=== PATIENT | male | born 1960 | race Caucasian/White ===

== ENCOUNTER 2019-08-08 07:00 | Outpatient (CLI) | payer OTHER ==
[2019-08-08 14:38] LABS: Hemoglobin 15.1 g/dL (14.0-18.0); Mean Corpuscular HGB CONC 34.1 g/dL (32.0-36.0); Mean Corpuscular Hemoglobin 33.5 pg (27.0-31.0); Mean Corpuscular Volume 98.3 fL (78.0-98.0); Mean Platelet Volume 7.1 fL (7.4-10.4); Platelet Count 277 thou/uL (130-400); RBC Distribution Width 11.5 % (11.5-14.5); Red Blood Cell (RBC) Count 4.52 mill/uL (4.70-6.10); White Blood Cell (WBC) Count 10.8 thou/uL (4.8-10.8)
[2019-08-08 14:58] LABS: Anion Gap 13 mmol/L (10-20); BUN (Urea Nitrogen) 16 mg/dL (8.4-25.7); Calc. Creatinine Clearance 0 mL/min (70-130); Calcium 9.7 mg/dL (7.8-10.44); Carbon Dioxide 27 mmol/L (22-29); Chloride 100 mmol/L (98-107); Estimated GFR-MDRD 81; Glucose 102 mg/dL (70-105); Potassium 4.1 mmol/L (3.5-5.1); Sodium 136 mmol/L (136-145)
--- NOTE | 2019-08-12 16:12 | EKG ---
Test Reason : Blood Pressure : / mmHG Vent. Rate : 094 BPM Atrial Rate : 094 BPM P-R Int : 154 ms QRS Dur : 114 ms QT Int : 368 ms P-R-T Axes : 058 -39 016 degrees QTc Int : 460 ms Normal sinus rhythm Left axis deviation Moderate voltage criteria for LVH, may be normal variant Abnormal ECG No previous ECGs available Confirmed by DR. Radha HALE ([id number]) on 08/12/2019 4:12:17 PM Referred By: TAYLA Confirmed By:DR. Radha HALE
== END 2019-08-08 07:01 | disposition home or self-care (01) ==
LOC: LABBT 07:00
PROVIDERS: ATTEND Orthopaedic Surgery
DX: Z01.818 Encounter for other preprocedural examination (principal); G56.01 Carpal tunnel syndrome, right upper limb
CPT/HCPCS: 80048; 85027; 93005; 93010

== ENCOUNTER 2019-08-09 10:06 | Day surgery (SDC) | payer OTHER ==
[2019-08-08 13:14] VITALS: BMI 27.2
[2019-08-09] MEDS ORDERED: Bupivacaine HCl 0.5%/Epinephrine 1:200,000/PF 30 ml Vial ONE (13:08)
[2019-08-09] MEDS ORDERED: Neomycin-Polymyxin 1 ML AMP ONE (13:08)
[2019-08-09] MEDS ORDERED: Midazolam HCl 2 mg/2 ml Vial ONE (13:19)
[2019-08-09] MEDS ORDERED: Fentanyl 100 MCG/2 ML VIAL ONE (13:33)
[2019-08-09] MEDS ORDERED: PROPOFOL 200 MG/20 ML VIAL ONE (13:40)
[2019-08-09] MEDS ORDERED: Ondansetron PF 4 MG/2 ML Vial ONE (13:40)
[2019-08-09] MEDS ORDERED: Lidocaine 1% PF 5 ML VIAL ONE (13:40)
[2019-08-09] MEDS ORDERED: Ketorolac Tromethamine 30 MG/ML VIAL ONE (13:40)
[2019-08-09] MEDS ORDERED: HYDROcodone/Acetaminophen 7.5/325 mg Tablet ONE (14:56)
--- NOTE | 2019-08-09 16:19 | OP ---
DATE OF PROCEDURE: 08/09/2019 PREOPERATIVE DIAGNOSIS: Right carpal tunnel syndrome. POSTOPERATIVE DIAGNOSIS: Right carpal tunnel syndrome. PROCEDURE PERFORMED: Right carpal tunnel release. ANESTHESIA: General. DESCRIPTION OF PROCEDURE: The patient was given preoperative IV antibiotics, taken to the operating room, placed in supine position. Satisfactory general anesthesia was performed. The right hand, wrist, and distal forearm were sterilely prepped and draped, and after exsanguination, tourniquet in the proximal right forearm was raised to 220 mmHg. A curvilinear incision was made approximately 1.5 cm in length at the palm of the hand over the carpal tunnel and blunt dissection was made down through the palmar fascia and the median nerve was identified using the [employer] Carpal [employer]unnel [employer] instrumentation. The interval between the median nerve and the transverse carpal ligament was developed and then the [place] was used to cut the transverse carpal ligament and any other soft tissue that was constructed in the median nerve. After this was performed, I was able to visually see the median nerve into the palm of the hand into the wrist. The wound was then irrigated and closed using 3-0 Rapide. The wound was infiltrated with 10 mL of 0.5% Marcaine with epinephrine. Sterile dressing was applied. Tourniquet was released. The patient was awakened, extubated, and transferred to recovery room in stable condition. ESTIMATED BLOOD LOSS: None. COMPLICATIONS: None. TOURNIQUET TIME: 7 minutes. DISCHARGE MEDICATION: Tramadol 50 mg one every 4-6 hours as needed for pain, #40, with one refill. FOLLOWUP: Follow up in my office in 1 week. Job ID: [id number]
== END 2019-08-09 17:10 | disposition home or self-care (01) ==
LOC: SDC 10:06
PROVIDERS: ATTEND Orthopaedic Surgery
PROC: 01N50ZZ Release Median Nerve, Open Approach (ICD-10-PCS; principal; 2019-08-09)
DX: G56.01 Carpal tunnel syndrome, right upper limb (principal); I10 Essential (primary) hypertension; F32.9 Major depressive disorder, single episode, unspecified; Z79.899 Other long term (current) drug therapy; Z98.890 Other specified postprocedural states
CPT/HCPCS: J0670; J0690; J1885; J2001; J2250; J2405; J2704; J3010

== ENCOUNTER 2020-11-24 11:02 | Inpatient (IN) | payer OTHER, SELFPAY ==
[2020-11-24 11:49] LABS: #Eosinphils 0.2 thou/uL (0.0-0.7); #Lymphocytes 2.8 thou/uL (1.20-3.40); #Monocytes 0.7 thou/uL (0.11-0.59); #Neutrophils 6.2 thou/uL (1.40-6.50); %Basophils 0.2 % (0.0-1.0); %Eosinophils 1.7 % (0.0-10.0); %Lymphocytes 28.7 % (21.0-51.0); %Monocytes 7.1 % (0.0-10.0); %Neutrophils 62.4 % (42.0-75.0); Hemoglobin 13.4 g/dL (14.0-18.0); Mean Corpuscular HGB CONC 32.6 g/dL (32.0-36.0); Mean Corpuscular Hemoglobin 32.5 pg (27.0-31.0); Mean Corpuscular Volume 99.7 fL (78.0-98.0); Mean Platelet Volume 7.4 fL (7.4-10.4); Platelet Count 232 thou/uL (130-400); RBC Distribution Width 12.5 % (11.5-14.5); Red Blood Cell (RBC) Count 4.11 mill/uL (4.70-6.10); White Blood Cell (WBC) Count 9.9 thou/uL (4.8-10.8)
--- NOTE | 2020-11-24 12:00 | RAD ---
Exam: Chest one view HISTORY:Dyspnea. Comparison: None FINDINGS: Cardiac silhouette: Normal Aorta: Unremarkable Pulmonary vessels: Normal Costophrenic angles: Clear LUNGS: No masses or consolidation. Pneumothorax: None Osseous abnormalities: None IMPRESSION: No acute cardiopulmonary process.
[2020-11-24 12:13] LABS: ALT (SGPT) 42 U/L (8-55); AST (SGOT) 32 U/L (5-34); Albumin 3.9 g/dL (3.5-5.0); Alkaline Phosphatase 71 U/L (40-110); Anion Gap 14 mmol/L (10-20); BUN (Urea Nitrogen) 22 mg/dL (8.4-25.7); Bilirubin, Total 0.5 mg/dL (0.2-1.2); CK (CPK) 60 U/L (30-200); Calc. Creatinine Clearance 0 mL/min (70-130); Calcium 8.7 mg/dL (7.8-10.44); Carbon Dioxide 26 mmol/L (22-29); Chloride 103 mmol/L (98-107); Globulin 2.7 g/dL (2.4-3.5); Glucose 112 mg/dL (70-105); Lipase 8 U/L (8-78); Potassium 3.9 mmol/L (3.5-5.1); Protein, Total 6.6 g/dL (6.0-8.3); Sodium 139 mmol/L (136-145)
--- NOTE | 2020-11-24 13:35 | CT ---
CT ANGIOGRAM THORAX WITH IV CONTRAST AND 3-D RECONSTRUCTIONS CLINICAL INDICATION: Worsening shortness of breath. COMPARISON: None FINDINGS: Pulmonary arteries: No filling defects are seen in the pulmonary arteries to suggest a pulmonary embo law. Aorta: Not well opacified for adequate evaluation of aortic dissection, but the thoracic aorta is nor mal in caliber. Minimal vascular calcifications are seen. Lungs: Small to moderate right and small left pleural effusion are present. There is passive atelecta sis bilaterally. Scattered areas of groundglass opacity are seen in the left suprahilar region, and in the right upper , middle, and lower lobes. Mediastinum: Nonspecific mildly prominent mediastinal lymph nodes. Heart is at the upper limits of no rmal in size. Thyroid gland: Grossly normal nonenhanced CT appearance allowing for artifact. Osseous structures: No suspicious lytic or sclerotic osseous lesion. Chest wall: No abnormality visualized. Upper abdomen: Mild reflux of contrast into hepatic veins. Remainder of the visualized upper abdomen has a normal CT appearance. IMPRESSION: 1. Scattered groundglass densities within the lungs bilaterally which could be related to infectious or inflammatory process. 2. No CT evidence for pulmonary embolus. 3. Bilateral pleural effusions larger in size on the right.
[2020-11-24] MEDS ORDERED: Nitroglycerin 2% Ointment 1 INCH/1 GM Packet ONE (14:04)
[2020-11-24] MEDS ORDERED: Clopidogrel Bisulfate 75 MG TAB ONE (14:04)
[2020-11-24] MEDS ORDERED: Furosemide 40 MG/4 ML VIAL ONE (14:04)
[2020-11-24] MEDS ORDERED: Iopamidol-370 76% 500 ML 1 ML ONE (15:01)
[2020-11-24 15:26] LABS: Troponin I 0.046 ng/mL (< 0.028)
[2020-11-24 15:44] LABS: SARS-CoV-2 NAA Rapid Test Not Detected (NotDetected)
[2020-11-24 18:09] LABS: Troponin I 0.037 ng/mL (< 0.028)
[2020-11-24] MEDS ORDERED: Acetaminophen 325 MG TAB PO PRN (18:59)
[2020-11-24] MEDS ORDERED: cloNIDine 0.1 MG TAB PO PRN (19:16)
--- NOTE | 2020-11-24 19:17 | PDOC.HHP ---
Hospitalist [facility] Shortness of breath History of Present Illness: 60-year-old male with hypertension presents to the hospital with worsening shortness of breath of 1 month duration. The shortness of breath is present on [id number] exertion. Last weekend patient woke up approximately 10 times in the middle of the night gasping for air. He also noticed some bilateral lower extremity swelling. The shortness of breath gets worse on lying down flat. He denies any relieving factor. Patient complains of mild cough which was essentially dry. No wheezing, hemoptysis chest pain, palpitations, lightheadedness, dizziness, syncope, claudication, sick contacts or fever reported. In the emergency room his initial vital signs showed temperature 97.9 with pulse rate of 110, respiration of 24 with blood pressure of 133/100. His chest x-ray was consistent with volume overload. Due to elevated D-dimer he underwent a CT angiogram of the chest that showed bilateral pleural effusion larger on the right with scattered groundglass densities within the lungs bilaterally. His EKG showed sinus tachycardia with left axis deviation. His Covid testing came back negative. He received 1 dose of Plavix with Nitropatch and Lasix in the emergency room. Allergies/Adverse Reactions: Allergy/AdvReac Type Severity Reaction Status Date / Time No Known Allergies Allergy Unverified 08/08/19 13:11 Home Medications: Medication Instructions Recorded Confirmed Type Lisinopril 20 mg PO QAM 08/08/19 08/08/19 History Nortriptyline HCl 75 mg PO HS 08/08/19 08/08/19 History Past History: PAST MEDICAL HISTORY: Hypertension, anxiety PAST SURGICAL HISTORY: Bilateral carpal tunnel release, bilateral knee surgery SOCIAL HISTORY: Patient is a recovering alcoholiclast drink was approximately 8 months ago. He is also former smoker. Lives at home with his family. Denies any drug use FAMILY HISTORY: Denies any premature coronary artery disease in his family Hospitalist HPI ROS Constitutional: denies: fever, chills, sweats, weakness, malaise, other Gastrointestinal: denies: nausea, vomiting, abdominal pain, diarrhea, constipation, melena, hematochezia, other Genitourinary: denies: dysuria, frequency, incontinence, hematuria, retention, other All other systems reviewed; all pertinent +/- noted in HPI/Subj Hospitalist Exam General Appearance: awake alert General - other findings: Minimal respiratory distress at rest Eye: PERRL, anicteric sclera ENT: normocephalic atraumatic, no oropharyngeal lesions Neck: supple, no carotid bruit, JVD Heart: RRR, no gallops, no rubs, normal peripheral pulses Respiratory: no wheezes, rhonchi, tachypneic Respiratory - other findings: Bibasilar rales, accessory muscle use Gastrointestinal: soft, normal bowel sounds, no guarding, no rigidity Extremities: no cyanosis, no clubbing, 2+ LE edema Skin: normal turgor, no lesions Neurological: no new deficit Musculoskeletal: normal tone, normal strength Psychiatric: normal affect, A&O x 3 Hospitalist Results Result Diagrams: 11/24/20 11:38 11/24/20 11:38 Lab results: Laboratory Last Values WBC 9.9 thou/uL (4.8-10.8) 11/24/20 11:38 RBC 4.11 mill/uL (4.70-6.10) L 11/24/20 11:38 Hgb 13.4 g/dL (14.0-18.0) L 11/24/20 11:38 Hct 41.0 % (42.0-52.0) L 11/24/20 11:38 MCV 99.7 fL (78.0-98.0) H 11/24/20 11:38 MCH 32.5 pg (27.0-31.0) H 11/24/20 11:38 MCHC 32.6 g/dL (32.0-36.0) 11/24/20 11:38 RDW 12.5 % (11.5-14.5) 11/24/20 11:38 Plt Count 232 thou/uL (130-400) 11/24/20 11:38 MPV 7.4 fL (7.4-10.4) 11/24/20 11:38 Neutrophils % 62.4 % (42.0-75.0) 11/24/20 11:38 Lymphocytes % 28.7 % (21.0-51.0) 11/24/20 11:38 Monocytes % 7.1 % (0.0-10.0) 11/24/20 11:38 Eosinophils % 1.7 % (0.0-10.0) 11/24/20 11:38 Basophils % 0.2 % (0.0-1.0) 11/24/20 11:38 Neutrophils # 6.2 thou/uL (1.40-6.50) 11/24/20 11:38 Lymphocytes # 2.8 thou/uL (1.20-3.40) 11/24/20 11:38 Monocytes # 0.7 thou/uL (0.11-0.59) H 11/24/20 11:38 Eosinophils # 0.2 thou/uL (0.0-0.7) 11/24/20 11:38 Basophils # 0.0 thou/uL (0.0-0.2) 11/24/20 11:38 D-Dimer 0.59 *mcg/mL (0.27-0.43) H 11/24/20 11:38 Sodium 139 mmol/L (136-145) 11/24/20 11:38 Potassium 3.9 mmol/L (3.5-5.1) 11/24/20 11:38 Chloride 103 mmol/L (98-107) 11/24/20 11:38 Carbon Dioxide 26 mmol/L (22-29) 11/24/20 11:38 Anion Gap 14 mmol/L (10-20) 11/24/20 11:38 BUN 22 mg/dL (8.4-25.7) 11/24/20 11:38 Creatinine 1.01 mg/dL (0.7-1.3) 11/24/20 11:38 Estimated GFR (MDRD) 76 11/24/20 11:38 Glucose 112 mg/dL (70-105) H 11/24/20 11:38 Calcium 8.7 mg/dL (7.8-10.44) 11/24/20 11:38 Magnesium 2.0 mg/dL (1.6-2.6) 11/24/20 11:38 Total Bilirubin 0.5 mg/dL (0.2-1.2) 11/24/20 11:38 AST 32 U/L (5-34) 11/24/20 11:38 ALT 42 U/L (8-55) 11/24/20 11:38 Alkaline Phosphatase 71 U/L (40-110) 11/24/20 11:38 Creatine Kinase 60 U/L (30-200) 11/24/20 11:38 CK-MB (CK-2) 2.0 ng/mL (0-6.6) 11/24/20 11:38 Troponin I 0.037 ng/mL (< 0.028) H 11/24/20 17:34 B-Natriuretic Peptide 1744.7 pg/mL (0-100) H 11/24/20 11:38 Serum Total Protein 6.6 g/dL (6.0-8.3) 11/24/20 11:38 Albumin 3.9 g/dL (3.5-5.0) 11/24/20 11:38 Globulin 2.7 g/dL (2.4-3.5) 11/24/20 11:38 Albumin/Globulin Ratio 1.4 g/dL (1.2-2.2) 11/24/20 11:38 Lipase 8 U/L (8-78) 11/24/20 11:38 Influenza A RNA INAAT Not Detected (NotDetected) 11/24/20 14:35 Influenza B RNA INAAT Not Detected (NotDetected) 11/24/20 14:35 SARS-CoV-2 Rap RNA(RT-PCR) Not Detected (NotDetected) 11/24/20 14:35 Other Status: image reviewed by me Additional Comments: I reviewed the chest x-ray, EKG and CT angiogram of the chest Hospitalist H&P A/P Plan: 60-year-old male with hypertension presenting with worsening shortness of breath along with orthopnea and paroxysmal nocturnal dyspnea. Suspected acute heart failure exacerbationsuspected systolic type. Patient also has bilateral pleural effusion Infectious etiology less likely since patient does not have any left shift. Covid testing negative Plan: Patient will be monitored on the telemetry unit. He received 1 dose of Lasix 40 mg in the emergency room which will be continued. Add Nitropatch with aspirin. Continue lisinopril at home dose. Hold beta-blockers for now due to acute CHF exacerbation. Add fluid restriction. Cardiology consultation. Echocardiogram. N.p.o. past midnight. Hypertensionuncontrolled Continue lisinopril with Nitropatch. Add as needed antihypertensives Anxiety Patient denies any suicidal ideation. Will resume home medications once verified Macrocytic anemia We will add vitamin B12 and folic acid supplementation
[2020-11-24] MEDS: Enoxaparin Sodium 40 MG/0.4 ML SYRINGE SC SCH (20:57)
[2020-11-24] MEDS: Thiamine 100 MG TAB PO SCH (20:59)
[2020-11-24] MEDS: Folic Acid 1 MG TAB PO SCH (20:59)
[2020-11-24] MEDS: Cyanocobalamin (Vitamin B-12) 1,000 MCG TAB PO SCH (20:59)
[2020-11-24] MEDS: Multivit, Therapeutic 1 TAB PO SCH (20:59)
[2020-11-24] MEDS: Nitroglycerin 2% Ointment 1 INCH/1 GM Packet TOP SCH (20:59)
[2020-11-25 05:15] LABS: #Basophils 0.1 thou/uL (0.0-0.2); #Eosinphils 0.3 thou/uL (0.0-0.7); #Lymphocytes 2.8 thou/uL (1.20-3.40); #Monocytes 0.8 thou/uL (0.11-0.59); #Neutrophils 6.4 thou/uL (1.40-6.50); %Eosinophils 3.3 % (0.0-10.0); %Monocytes 7.9 % (0.0-10.0); %Neutrophils 60.8 % (42.0-75.0); Hemoglobin 13.7 g/dL (14.0-18.0); Mean Corpuscular HGB CONC 33.4 g/dL (32.0-36.0); Mean Corpuscular Hemoglobin 33.2 pg (27.0-31.0); Mean Corpuscular Volume 99.2 fL (78.0-98.0); Mean Platelet Volume 7.8 fL (7.4-10.4); Platelet Count 222 thou/uL (130-400); RBC Distribution Width 12.6 % (11.5-14.5); Red Blood Cell (RBC) Count 4.14 mill/uL (4.70-6.10); White Blood Cell (WBC) Count 10.4 thou/uL (4.8-10.8)
[2020-11-25 05:24] LABS: ALT (SGPT) 44 U/L (8-55); AST (SGOT) 35 U/L (5-34); Albumin 3.7 g/dL (3.5-5.0); Alkaline Phosphatase 70 U/L (40-110); Anion Gap 16 mmol/L (10-20); BUN (Urea Nitrogen) 17 mg/dL (8.4-25.7); Bilirubin, Total 0.6 mg/dL (0.2-1.2); Calc. Creatinine Clearance 93 mL/min (70-130); Calcium 8.7 mg/dL (7.8-10.44); Carbon Dioxide 26 mmol/L (22-29); Chloride 101 mmol/L (98-107); Globulin 2.5 g/dL (2.4-3.5); Glucose 104 mg/dL (70-105); Potassium 3.9 mmol/L (3.5-5.1); Protein, Total 6.2 g/dL (6.0-8.3); Sodium 139 mmol/L (136-145)
[2020-11-25] MEDS: Nitroglycerin 2% Ointment 1 INCH/1 GM Packet TOP SCH (05:34)
[2020-11-25] MEDS: Furosemide 40 MG/4 ML VIAL SLOW IVP SCH ×2 (05:34→16:31)
[2020-11-25] MEDS ORDERED: Potassium Chloride 20 MEQ TAB PO SCH (07:30)
[2020-11-25] MEDS: Lisinopril 20 MG TAB PO SCH (08:03)
[2020-11-25 08:56] VITALS: BMI 26.0
--- NOTE | 2020-11-25 09:16 | CON ---
DATE OF CONSULTATION: REASON FOR CONSULTATION: Cardiomyopathy. HISTORY OF PRESENT ILLNESS: Mr. Campbell is a 60-year-old gentleman with no previous past medical history except for alcohol abuse, who recently presented with acute onset shortness of breath. He states he felt like he was smothered. He woke at 2:30 in the morning with a smothering like feeling. No chest pain or pressure noted. He does admit to drinking at least a 6-pack of beer per day. No chest pain, pressure, syncope, or presyncope noted. PAST MEDICAL HISTORY: Hypertension, anxiety disorder, carpal tunnel release, and knee surgery. SOCIAL HISTORY: Previous recovered alcoholic, but has resumed. HOME MEDICATIONS: 1. Omeprazole. 2. Lisinopril. 3. Meloxicam. 4. Nortriptyline. ALLERGIES: TO IBUPROFEN. REVIEW OF SYSTEMS: A 10-point review of systems is reviewed and is as above, otherwise negative. PHYSICAL EXAMINATION: GENERAL: Patient is a pleasant male who is in no acute distress. The patient appears their stated age. VITAL SIGNS: Blood pressure 129/88, pulse 100, temperature afebrile. NEUROLOGIC: The patient is alert and oriented x3 with no focal neurologic deficits. HEENT: Sclerae without icterus. Mouth has moist mucous membranes with normal pallor. NECK: No JVD. Carotid upstroke brisk. No bruits bilaterally. LUNGS: Clear to auscultation with unlabored respirations. Crackle noted bilaterally BACK: No scoliosis or kyphosis. CARDIAC: Regular rate and rhythm with normal S1 and S2. No S3 or S4 noted. No significant rubs, murmurs, thrills, or gallops noted throughout the precordium. PMI is not displaced. There is no parasternal heave. ABDOMEN: Soft, nontender, nondistended. No peritoneal signs present. No hepatosplenomegaly. No abnormal striae. EXTREMITIES: 2+ femoral and 2+ dorsalis pedis pulses. No cyanosis, clubbing, or edema. SKIN: No gross abnormalities. PERTINENT LABORATORY DATA: Hemoglobin 13.7 and hematocrit 41.1. Creatinine 1.03. Peak troponin 0.046 and BNP of 1744. IMPRESSION: 1. Cardiomyopathy of unknown etiology. 2. Shortness of breath. 3. Alcohol abuse. RECOMMENDATIONS: Mr. Campbell based on his physical examination findings and lab tests likely has a new onset cardiomyopathy. This is likely related to alcohol abuse. We will recommend reviewing his echo. If it confirms above, we will recommend coronary angiography plus PCI to assess for any coronary artery disease. I discussed procedure in full detail with Mr. Campbell. Risks include not limited to the following: , stroke, MA, need for emergency surgery, loss of limb, bleeding, and infection, as well as a reaction to the dye causing kidney failure and needing long-term dialysis. I also discussed the risks of PCI to include all of the above including coronary dissection and perforation in addition to acute stent thrombosis and restenosis. All questions about the procedure were answered. Given the above, the patient agreed to proceed with coronary angiography and possible PCI. He gave consent. All questions answered. Given the above, the patient agreed to proceed with above procedure. We would recommend adding Coreg 3.125 one p.o. b.i.d. Continue lisinopril at the current dose. The patient may also benefit from digoxin. We will discontinue Nitro-Bid. Job ID: [id number]
[2020-11-25] MEDS ORDERED: Iopamidol 370 76% 100 ML VIAL ONE (09:27)
[2020-11-25 10:30] LABS: Iron 60 ug/dL (65-175); Iron Binding Capacity, Total 301 mcg/dL (261-462)
[2020-11-25] MEDS ORDERED: Lidocaine 1% (PF) 30 ML VIAL ONE (13:00)
[2020-11-25] MEDS ORDERED: Nitroglycerin 100MG/250ML BOT 250 ML ONE (13:26)
[2020-11-25] MEDS ORDERED: Verapamil 5 MG/2 ML VIAL ONE (13:26)
[2020-11-25] MEDS ORDERED: Heparin 10,000 UNITS/ 10 ML VIAL ONE (13:26)
[2020-11-25] MEDS ORDERED: Fentanyl 100 MCG/2 ML VIAL ONE (13:36)
[2020-11-25] MEDS ORDERED: Midazolam HCl 2 mg/2 ml Vial ONE (13:36)
[2020-11-25] MEDS ORDERED: Acetaminophen/Codeine 30-300mg Tablet PO PRN ×2 (13:56)
[2020-11-25] MEDS ORDERED: Nitroglycerin 0.4 MG TAB (25 Tab Bottle) SL PRN (13:56)
[2020-11-25] MEDS ORDERED: Sodium Chloride 0.9% 200 ML IV PRN (13:56)
[2020-11-25] MEDS ORDERED: Sodium Chloride 0.9% 1,000 ML IV SCH (14:00)
[2020-11-25] MEDS: Aspirin Chewable 81 MG TAB PO SCH (16:31)
[2020-11-25] MEDS: Carvedilol 6.25 MG TAB PO SCH ×2 (16:59→21:50)
--- NOTE | 2020-11-25 17:35 | PDOC.HOSPP ---
- Subjective Encounter Date: 11/25/20 Encounter Time: 09:00 Subjective: Patient seen and examined for congestive heart failure exacerbation. Shortness of breath improving. Denies any chest pain, cough, wheezing, hemoptysis or palpitations. - Objective Vital Signs & Weight: Vital Signs (12 hours) Temp Pulse Resp BP BP Pulse Ox 11/25/20 16:59 128/94 H 11/25/20 14:30 98 20 128/94 H 128/94 H 97 11/25/20 14:15 102 H 20 131/93 H 131/93 H 96 11/25/20 12:24 126/87 11/25/20 12:23 98.0 F 98 20 127/96 H 95 11/25/20 08:00 97.7 F 98 18 132/89 100 Weight Admit Weight 184 lb Weight 184 lb I&O: 11/24/20 11/25/20 11/26/20 06:59 06:59 06:59 Intake Total 240 Output Total 1000 Balance -760 Result Diagrams: 11/25/20 04:13 11/25/20 04:13 Additional Labs: Abnormal Lab Results - Last 48 hrs 11/24/20 11:38: B-Natriuretic Peptide 1744.7 H 11/24/20 11:38: RBC 4.11 L, Hgb 13.4 L, Hct 41.0 L, MCV 99.7 H, MCH 32.5 H, Monocytes # 0.7 H 11/24/20 11:38: D-Dimer 0.59 H 11/24/20 11:38: Troponin I 0.040 H 11/24/20 14:49: Troponin I 0.046 H 11/24/20 17:34: Troponin I 0.037 H 11/25/20 04:13: AST 35 H 11/25/20 04:13: RBC 4.14 L, Hgb 13.7 L, Hct 41.1 L, MCV 99.2 H, MCH 33.2 H, Monocytes # 0.8 H 11/25/20 04:13: Iron 60 L Radiology Reviewed by me: Yes (Chest x-ray reviewed) EKG Reviewed by me: Yes (Sinus rhythm on telemetry) Hospitalist ROS - Review of Systems Respiratory: reports: shortness of breath, SOB with excertion. denies: cough, dry, hemoptysis, pleuritic pain, sputum, wheezing, other Cardiovascular: reports: orthopnea, edema. denies: chest pain, palpitations, paroxysmal noc. dyspnea, light headedness, other Gastrointestinal: denies: nausea, vomiting, abdominal pain, diarrhea, co nstipation, melena, hematochezia, other - Medication Medications: Active Medications Generic Name Dose Route Start Last Admin Trade Name Jagq PRN Reason Stop Dose Admin Aspirin 81 mg 11/25/20 09:00 11/25/20 16:31 Aspirin Chewable 81 Mg Tab PO 81 mg DAILY YOGESH Administration Carvedilol 3.125 mg 11/25/20 09:00 11/25/20 16:59 Carvedilol 6.25 Mg Tab PO 3.125 mg BID YOGESH Administration Cyanocobalamin 1,000 mcg 11/24/20 21:00 11/24/20 20:59 Cyanocobalamin (Vitamin B-12) 1,000 Mcg Tab PO 1,000 mcg HS YOGESH Administration Enoxaparin Sodium 40 mg 11/24/20 21:00 11/24/20 20:57 Enoxaparin Sodium 40 Mg/0.4 Ml Syringe SC 40 mg 2100 YOGESH Administration Folic Acid 1 mg 11/24/20 21:00 11/24/20 20:59 Folic Acid 1 Mg Tab PO 1 mg HS YOGESH Administration Furosemide 40 mg 11/25/20 06:00 11/25/20 16:31 Furosemide 40 Mg/4 Ml Vial SLOW IVP 40 mg 0600,1400 YOGESH Administration Sodium Chloride 1,000 mls @ 125 mls/hr 11/25/20 14:00 11/25/20 15:36 Normal Saline 0.9% IV 11/25/20 18:01 1,000 mls .Q8H YOGESH Administration Lisinopril 20 mg 11/25/20 09:00 11/25/20 08:03 Lisinopril 20 Mg Tab PO 20 mg DAILY YOGESH Administration Multivitamins 1 tab 11/24/20 21:00 11/24/20 20:59 Multivit, Therapeutic 1 Tab PO 1 tab HS YOGESH Administration Thiamine HCl 100 mg 11/24/20 21:00 11/24/20 20:59 Thiamine 100 Mg Tab PO 100 mg HS YOGESH Administration Hospitalist Exam Vitals: Vital Signs (12 hours) Temp Pulse Resp BP BP Pulse Ox 11/25/20 16:59 128/94 H 11/25/20 14:30 98 20 128/94 H 128/94 H 97 11/25/20 14:15 102 H 20 131/93 H 131/93 H 96 11/25/20 12:24 126/87 11/25/20 12:23 98.0 F 98 20 127/96 H 95 11/25/20 08:00 97.7 F 98 18 132/89 100 Weight Admit Weight 184 lb Weight 184 lb General Appearance: awake alert Eye: PERRL Neck: supple, no JVD Heart: RRR, no gallops, no rubs, normal peripheral pulses Respiratory: no wheezes, normal chest expansion, rales, rhonchi Gastrointestinal: soft, non-tender, non-distended, normal bowel sounds Extremities: no cyanosis, no clubbing, 1+ LE edema Skin: normal turgor Neurological: no new deficit Musculoskeletal: normal tone, normal strength Psychiatric: normal affect, A&O x 3 Hosp A/P - Plan DVT proph w/SCDs 60-year-old male with hypertension presenting with worsening shortness of breath along with orthopnea and paroxysmal nocturnal dyspnea. Suspected acute heart failure exacerbationsuspected systolic type with bilateral pleural effusion We'll continue telemetry monitoring. Continue IV Lasix. Cardiology input appreciated. Await echocardiogram. Continue fluid restriction. CV team. Counseled on congestive heart failure. Patient is n.p.o. for possible intervention Hypertensionbetter controlled Continue lisinopril with Nitropatch. Low-dose beta-blockers added this morning. Anxiety Will hold nortriptyline due to high risk of cardiac arrhythmias in the setting of congestive heart failure Macrocytic anemia Continue vitamin B12 and folic acid supplementation
[2020-11-25] MEDS: Folic Acid 1 MG TAB PO SCH (21:51)
[2020-11-25] MEDS: Cyanocobalamin (Vitamin B-12) 1,000 MCG TAB PO SCH (21:51)
[2020-11-25] MEDS: Enoxaparin Sodium 40 MG/0.4 ML SYRINGE SC SCH (21:51)
[2020-11-25] MEDS: Multivit, Therapeutic 1 TAB PO SCH (21:51)
[2020-11-25] MEDS: Thiamine 100 MG TAB PO SCH (21:53)
[2020-11-26 05:19] LABS: ALT (SGPT) 43 U/L (8-55); AST (SGOT) 29 U/L (5-34); Albumin 3.7 g/dL (3.5-5.0); Alkaline Phosphatase 73 U/L (40-110); Anion Gap 14 mmol/L (10-20); BUN (Urea Nitrogen) 16 mg/dL (8.4-25.7); Bilirubin, Total 0.6 mg/dL (0.2-1.2); Calc. Creatinine Clearance 87 mL/min (70-130); Calcium 9.1 mg/dL (7.8-10.44); Carbon Dioxide 30 mmol/L (22-29); Chloride 99 mmol/L (98-107); Globulin 2.8 g/dL (2.4-3.5); Glucose 105 mg/dL (70-105); Magnesium 2.1 mg/dL (1.6-2.6); Potassium 4.1 mmol/L (3.5-5.1); Protein, Total 6.5 g/dL (6.0-8.3); Sodium 139 mmol/L (136-145)
[2020-11-26] MEDS: Furosemide 40 MG/4 ML VIAL SLOW IVP SCH (06:20)
[2020-11-26 07:57] VITALS: TEMP 97.9
[2020-11-26] MEDS ORDERED: Carvedilol 6.25 MG TAB PO SCH (09:00)
[2020-11-26] MEDS: Lisinopril 20 MG TAB PO SCH (09:18)
[2020-11-26] MEDS: Aspirin Chewable 81 MG TAB PO SCH (09:18)
[2020-11-26 11:23] VITALS: BP 99/71
--- NOTE | 2020-11-26 11:57 | PDOC.DS.DS ---
Provider Date of Admission: 11/24/20 14:17 Date of Discharge: 11/26/20 Admitting Provider: Jas Lopez MD Consultations: Cardiology Primary Care Physician: [facility] All Course Hospital Course: Patient is a 60 year old male without chronic co-morbidities except for alcoholism. He was admitted with acutely worsening shortness of breath and was found to have new onset CHF. His 2-D echo showed a LVEF of 10-15%. Coronary angiogram did not reveal any significant coronary artery disease. He did well on medical therapy and will be discharged with a lifevest. He initially refused it but later reversed his decision after discussion with the primary team. Resuscitation Status: 11/24/20 18:55 Resuscitation Status Routine Resuscitation Status: FULL: Full Resuscitation Lab Results: 11/25/20 04:13 11/26/20 04:38 Abnormal Lab Results - Last 48 hrs 11/24/20 11:38: B-Natriuretic Peptide 1744.7 H 11/24/20 11:38: D-Dimer 0.59 H 11/24/20 11:38: Troponin I 0.040 H 11/24/20 14:49: Troponin I 0.046 H 11/24/20 17:34: Troponin I 0.037 H 11/25/20 04:13: AST 35 H 11/25/20 04:13: RBC 4.14 L, Hgb 13.7 L, Hct 41.1 L, MCV 99.2 H, MCH 33.2 H, Monocytes # 0.8 H 11/25/20 04:13: Iron 60 L 11/26/20 04:38: Carbon Dioxide 30 H Vitals: Vital Signs (12 hours) Temp Pulse Pulse Pulse Resp BP BP 11/26/20 11:21 97.9 F 91 18 11/26/20 10:38 88 102 H 97/67 11/26/20 09:33 11/26/20 09:18 128/94 H 11/26/20 07:56 97.9 F 99 18 11/26/20 04:00 98 18 BP BP Pulse Ox Pulse Ox Pulse Ox 11/26/20 11:21 99/71 96 11/26/20 10:38 108/75 92 L 96 11/26/20 09:33 95 11/26/20 09:18 11/26/20 07:56 119/84 95 11/26/20 04:00 115/81 95 Weight Admit Weight 184 lb Weight 178 lb Physical Exam: The patient was seen and examined on the day of discharge. General Appearance: NAD, awake alert Eye: anicteric sclera ENT: normocephalic atraumatic Neck: supple Respiratory: CTAB, no wheezes, no rales, no ronchi Cardiovascular: RRR, no murmur, no gallops Gastrointestinal: soft, non-tender, non-distended Extremities: no edema Neurological: cranial nerve grossly intact PSYCH: normal affect, normal behavior Plan Prescriptions: Nitroglycerin [Nitrostat] 0.4 mg SL Q5MIN PRN #50 tab PRN Reason: Chest Pain Aspirin Chewable [Aspirin Chewable Tablet] 81 mg PO DAILY #30 tab Carvedilol [Coreg] 6.25 mg PO BID #60 tab Folic Acid [Folvite] 1 mg PO HS #30 tab Thiamine 100 mg PO HS #30 tab Cyanocobalamin (Vitamin B-12) [Vitamin B-12] 1,000 mcg PO HS #30 tab Home Medications: Medication Instructions Recorded Confirmed Type Lisinopril/Hydrochlorothiazide 1 tablet PO DAILY 11/24/20 11/24/20 History [Lisinopril-Hctz 20-12.5 mg Tab] Omeprazole Magnesium [Prilosec] 10 mg PO DAILY 11/24/20 11/24/20 History Aspirin Chewable [Aspirin Chewable 81 mg PO DAILY #30 tab 11/26/20 Rx Tablet] Carvedilol [Coreg] 6.25 mg PO BID #60 tab 11/26/20 Rx Cyanocobalamin (Vitamin B-12) 1,000 mcg PO HS #30 tab 11/26/20 Rx [Vitamin B-12] Folic Acid [Folvite] 1 mg PO HS #30 tab 11/26/20 Rx Lisinopril [Zestril] 20 mg PO DAILY tab 11/26/20 Rx Multivit, Therapeutic [Theragran] 1 tab PO HS tab 11/26/20 Rx Nitroglycerin [Nitrostat] 0.4 mg SL Q5MIN PRN #50 tab 11/26/20 Rx Thiamine 100 mg PO HS #30 tab 11/26/20 Rx Allergies: ibuprofen [From Motrin] Allergy (Verified 11/24/20 20:37) Discharge Instructions:: please STOP taking nortriptyline Referrals: [facility] [Primary Care Provider] - Disposition: HOME Quality CORE MEASURES:: N/A
--- NOTE | 2020-11-26 18:04 | CON ---
DATE OF CONSULTATION: SUBJECTIVE: Mr. Campbell is doing well. No current complaints. He underwent coronary angiography yesterday and was not found to have significant coronary artery disease. OBJECTIVE: VITAL SIGNS: 137/80, pulse 80, respirations 20. LUNGS: Clear to auscultation. HEART: Regular rate and rhythm. ABDOMEN: Soft, nontender, nondistended. EXTREMITIES: No edema. PERTINENT LABS: Iron 60, TIBC 301. IMPRESSION: Nonischemic cardiomyopathy, likely alcohol-related. RECOMMENDATIONS: Mr. Purcell will be placed on Coreg in addition to HOLLY inhibitor therapy. Discussed with his primary hospitalist on adding digoxin. This will certainly be at his discretion. I am concerned about compliance with Mr. Purcell and would rather consolidate his medications. Also discussed LifeVest with Mr. Purcell. Initially, he stated he was agreeable, then decide against LifeVest due to the financial cost. I did state he could have them come by and discuss any financial payment arrangements, which he was agreeable. After this occurred, he decided against LifeVest. He understands the risk of sudden cardiac . PLAN: Plan is to follow up Mr. Purcell as an outpatient. Job ID: [id number]
== END 2020-11-26 14:19 | disposition home or self-care (01) | DRG 287 ==
LOC: ERS 11:02 → OBSVTOIN 14:17 → 2NO 14:17
PROVIDERS: ADMIT Internal Medicine; ATTEND Internal Medicine
PROC: 4A023N7 Measurement of Cardiac Sampling and Pressure, Left Heart, Percutaneous Approach (ICD-10-PCS; principal; 2020-11-25)
PROC: B2111ZZ Fluoroscopy of Multiple Coronary Arteries using Low Osmolar Contrast (ICD-10-PCS; 2020-11-25)
DX: I11.0 Hypertensive heart disease with heart failure (principal); I50.23 Acute on chronic systolic (congestive) heart failure; Z20.822 Contact with and (suspected) exposure to COVID-19; I42.6 Alcoholic cardiomyopathy; F41.9 Anxiety disorder, unspecified; D53.9 Nutritional anemia, unspecified; F10.20 Alcohol dependence, uncomplicated; Z79.899 Other long term (current) drug therapy; Z87.891 Personal history of nicotine dependence; Z88.8 Allergy status to other drugs, medicaments and biological substances
CPT/HCPCS: 0240U; 36415; 71045; 71275; 80053; 82550; 82553; 83540; 83550; 83690; 83735; 83880; 84443; 84484; 85025; 85379; 93005; 93306; 93454; 93798; 94760; 99152; J1644; J1650; J1940; J2001; J2250; J3010; Q9967

== ENCOUNTER 2020-12-01 03:46 | Inpatient (IN) | payer SELFPAY ==
[2020-12-01 04:20] LABS: #Basophils 0.1 thou/uL (0.0-0.2); #Eosinphils 0.4 thou/uL (0.0-0.7); #Lymphocytes 4.4 thou/uL (1.20-3.40); #Monocytes 0.9 thou/uL (0.11-0.59); #Neutrophils 5.5 thou/uL (1.40-6.50); %Basophils 0.5 % (0.0-1.0); %Eosinophils 3.2 % (0.0-10.0); %Neutrophils 49.3 % (42.0-75.0); Hemoglobin 14.7 g/dL (14.0-18.0); Mean Corpuscular HGB CONC 33.1 g/dL (32.0-36.0); Mean Corpuscular Hemoglobin 33.1 pg (27.0-31.0); Mean Platelet Volume 7.8 fL (7.4-10.4); Platelet Count 234 thou/uL (130-400); RBC Distribution Width 12.7 % (11.5-14.5); Red Blood Cell (RBC) Count 4.43 mill/uL (4.70-6.10); White Blood Cell (WBC) Count 11.2 thou/uL (4.8-10.8)
[2020-12-01 04:48] LABS: ALT (SGPT) 93 U/L (8-55); AST (SGOT) 66 U/L (5-34); Albumin 3.9 g/dL (3.5-5.0); Alkaline Phosphatase 69 U/L (40-110); Anion Gap 17 mmol/L (10-20); BUN (Urea Nitrogen) 31 mg/dL (8.4-25.7); Bilirubin, Total 0.3 mg/dL (0.2-1.2); Calc. Creatinine Clearance 0 mL/min (70-130); Carbon Dioxide 21 mmol/L (22-29); Chloride 102 mmol/L (98-107); Globulin 3.4 g/dL (2.4-3.5); Glucose 131 mg/dL (70-105); Potassium 5.5 mmol/L (3.5-5.1); Protein, Total 7.3 g/dL (6.0-8.3); Sodium 134 mmol/L (136-145)
[2020-12-01] MEDS ORDERED: Furosemide 40 MG/4 ML VIAL ONE (06:07)
[2020-12-01 07:09] LABS: Troponin I 0.036 ng/mL (< 0.028)
[2020-12-01 08:12] LABS: SARS-CoV-2 NAA Rapid Test Not Detected (NotDetected)
[2020-12-01] MEDS ORDERED: Senokot S 8.6-50 MG TAB PO PRN (09:13)
[2020-12-01] MEDS ORDERED: Ondansetron PF 4 MG/2 ML Vial IVP PRN (09:13)
[2020-12-01] MEDS ORDERED: Ondansetron ODT 4 MG TAB PO PRN (09:13)
[2020-12-01] MEDS ORDERED: Bisacodyl 5 MG TAB PO PRN (09:13)
[2020-12-01] MEDS ORDERED: Acetaminophen 325 MG TAB PO PRN (09:13)
[2020-12-01] MEDS ORDERED: Nitroglycerin 0.4 MG TAB (25 Tab Bottle) SL PRN (09:14)
[2020-12-01 10:12] LABS: Troponin I 0.041 ng/mL (< 0.028)
[2020-12-01 10:28] VITALS: BMI 25.7
[2020-12-01] MEDS ORDERED: FLU VACC QS2020-21(6MOS UP)/PF 60 MCG/0.5 ML SYRINGE IM ONE (10:45)
[2020-12-01] MEDS: Furosemide 40 MG/4 ML VIAL SLOW IVP SCH (14:14)
[2020-12-01 17:39] LABS: Potassium 4.8 mmol/L (3.5-5.1)
[2020-12-01] MEDS: Thiamine 100 MG TAB PO SCH ×2 (20:06→20:07)
[2020-12-01] MEDS: Carvedilol 6.25 MG TAB PO SCH (20:06)
[2020-12-01] MEDS: Folic Acid 1 MG TAB PO SCH (20:07)
[2020-12-01] MEDS: Cyanocobalamin (Vitamin B-12) 1,000 MCG TAB PO SCH (20:07)
[2020-12-01] MEDS: Multivit, Therapeutic 1 TAB PO SCH (20:07)
[2020-12-01] MEDS ORDERED: Furosemide 20 MG/2 ML VIAL SLOW IVP SCH (21:00)
[2020-12-02] MEDS: Furosemide 40 MG/4 ML VIAL SLOW IVP SCH ×2 (05:30→14:22)
[2020-12-02 05:39] LABS: #Eosinphils 0.5 thou/uL (0.0-0.7); #Monocytes 1.1 thou/uL (0.11-0.59); #Neutrophils 5.8 thou/uL (1.40-6.50); %Basophils 0.4 % (0.0-1.0); %Eosinophils 4.1 % (0.0-10.0); %Lymphocytes 34.7 % (21.0-51.0); %Monocytes 9.5 % (0.0-10.0); %Neutrophils 51.2 % (42.0-75.0); Hemoglobin 14.3 g/dL (14.0-18.0); Mean Corpuscular HGB CONC 32.4 g/dL (32.0-36.0); Mean Corpuscular Hemoglobin 32.1 pg (27.0-31.0); Mean Platelet Volume 7.6 fL (7.4-10.4); Platelet Count 240 thou/uL (130-400); RBC Distribution Width 12.6 % (11.5-14.5); Red Blood Cell (RBC) Count 4.45 mill/uL (4.70-6.10); White Blood Cell (WBC) Count 11.4 thou/uL (4.8-10.8)
[2020-12-02] MEDS: Enoxaparin Sodium 40 MG/0.4 ML SYRINGE SC SCH (08:21)
[2020-12-02] MEDS: Aspirin Chewable 81 MG TAB PO SCH (08:21)
[2020-12-02] MEDS: Carvedilol 6.25 MG TAB PO SCH ×2 (08:21→19:55)
[2020-12-02] MEDS: Lisinopril 5 MG TAB PO SCH (08:22)
[2020-12-02] MEDS ORDERED: Non-Formulary Item 1 EACH (Omeprazole Magnesium [Prilosec] 10 MG Suspdr.Pkt) PO SCH (09:00)
[2020-12-02] MEDS ORDERED: Lisinopril 20 MG TAB PO SCH (09:00)
[2020-12-02] MEDS: Thiamine 100 MG TAB PO SCH (19:54)
[2020-12-02] MEDS: Folic Acid 1 MG TAB PO SCH (19:54)
[2020-12-02] MEDS: Multivit, Therapeutic 1 TAB PO SCH (19:54)
[2020-12-02] MEDS: Cyanocobalamin (Vitamin B-12) 1,000 MCG TAB PO SCH (19:55)
[2020-12-03] MEDS: Furosemide 40 MG/4 ML VIAL SLOW IVP SCH (05:35)
[2020-12-03] MEDS ORDERED: Furosemide 40 MG TAB PO SCH (07:30)
[2020-12-03 07:59] VITALS: BP 116/81; TEMP 97.5
[2020-12-03] MEDS: Enoxaparin Sodium 40 MG/0.4 ML SYRINGE SC SCH (08:00)
[2020-12-03] MEDS: Carvedilol 6.25 MG TAB PO SCH (08:00)
[2020-12-03] MEDS: Lisinopril 5 MG TAB PO SCH (08:01)
[2020-12-03] MEDS: Aspirin Chewable 81 MG TAB PO SCH (08:01)
[2020-12-03 08:44] LABS: Anion Gap 16 mmol/L (10-20); BUN (Urea Nitrogen) 21 mg/dL (8.4-25.7); Calc. Creatinine Clearance 84 mL/min (70-130); Calcium 9.5 mg/dL (7.8-10.44); Carbon Dioxide 27 mmol/L (22-29); Chloride 97 mmol/L (98-107); Glucose 109 mg/dL (70-105); Potassium 3.5 mmol/L (3.5-5.1); Sodium 136 mmol/L (136-145)
[2020-12-03] MEDS ORDERED: Potassium Citrate 10 MEQ TAB PO SCH (09:00)
[2020-12-04] MEDS ORDERED: Furosemide 40 MG TAB PO SCH (07:30)
== END 2020-12-03 12:55 | disposition home or self-care (01) | DRG 292 ==
LOC: ERS 03:46 → ERHOLD 05:42 → 2SW 10:07
PROVIDERS: ADMIT Internal Medicine; ATTEND Internal Medicine
DX: I11.0 Hypertensive heart disease with heart failure (principal); F10.139 Alcohol abuse with withdrawal, unspecified; I24.8 Other forms of acute ischemic heart disease; F32.9 Major depressive disorder, single episode, unspecified; I50.23 Acute on chronic systolic (congestive) heart failure; Z20.822 Contact with and (suspected) exposure to COVID-19; I42.8 Other cardiomyopathies; F10.10 Alcohol abuse, uncomplicated; Z79.899 Other long term (current) drug therapy; I42.6 Alcoholic cardiomyopathy; Z87.891 Personal history of nicotine dependence; Z79.82 Long term (current) use of aspirin; Z88.8 Allergy status to other drugs, medicaments and biological substances
CPT/HCPCS: 0240U; 36415; 71045; 80048; 80053; 82553; 83880; 84484; 85007; 85025; 85027; 93005; 96374; J1650; J1940

== ENCOUNTER 2022-01-31 06:05 | Observation (INO) | payer OTHER, SELFPAY ==
[2022-01-31] MEDS ORDERED: Lidocaine Viscous Sol 2% 15 ml UD Cup ONE (06:20)
[2022-01-31] MEDS ORDERED: Mag-Al 1200 mg/1200 mg/30 ML UDCUP ONE (06:20)
[2022-01-31 06:44] LABS: #Eosinphils 0.3 thou/uL (0.0-0.7); #Lymphocytes 2.9 thou/uL (1.20-3.40); #Monocytes 0.7 thou/uL (0.11-0.59); #Neutrophils 5.8 thou/uL (1.40-6.50); %Basophils 0.5 % (0.0-1.0); %Eosinophils 2.7 % (0.0-10.0); %Lymphocytes 30.1 % (21.0-51.0); %Monocytes 6.8 % (0.0-10.0); %Neutrophils 59.9 % (42.0-75.0); Hemoglobin 14.7 g/dL (14.0-18.0); Mean Corpuscular HGB CONC 34.1 g/dL (32.0-36.0); Mean Corpuscular Hemoglobin 34.4 pg (27.0-31.0); Mean Platelet Volume 7.1 fL (7.4-10.4); Platelet Count 213 thou/uL (130-400); RBC Distribution Width 11.4 % (11.5-14.5); Red Blood Cell (RBC) Count 4.27 mill/uL (4.70-6.10); White Blood Cell (WBC) Count 9.7 thou/uL (4.8-10.8)
[2022-01-31 06:59] LABS: ALT (SGPT) 47 U/L (8-55); AST (SGOT) 73 U/L (5-34); Albumin 4.2 g/dL (3.5-5.0); Alkaline Phosphatase 75 U/L (40-110); Anion Gap 13 mmol/L (10-20); BUN (Urea Nitrogen) 17 mg/dL (8.4-25.7); Bilirubin, Total 0.5 mg/dL (0.2-1.2); Calc. Creatinine Clearance 0 mL/min (70-130); Calcium 9.2 mg/dL (7.8-10.44); Carbon Dioxide 27 mmol/L (22-29); Chloride 102 mmol/L (98-107); Globulin 2.9 g/dL (2.4-3.5); Glucose 118 mg/dL (70-105); Lipase 21 U/L (8-78); Potassium 3.8 mmol/L (3.5-5.1); Protein, Total 7.1 g/dL (6.0-8.3); Sodium 138 mmol/L (136-145)
[2022-01-31] MEDS ORDERED: Aspirin Chewable 81 MG TAB ONE (07:49)
[2022-01-31] MEDS ORDERED: Acetaminophen 325 MG TAB PO PRN (09:26)
[2022-01-31 09:27] LABS: Troponin I 0.014 ng/mL (< 0.028)
[2022-01-31] MEDS ORDERED: Nitroglycerin 0.4 MG TAB (25 Tab Bottle) SL PRN (09:44)
[2022-01-31 10:01] VITALS: TEMP 97.4
[2022-01-31 10:02] VITALS: BMI 27.0
[2022-01-31] MEDS ORDERED: Carvedilol 6.25 MG TAB PO SCH ×2 (10:15→21:00)
[2022-01-31] MEDS ORDERED: Furosemide 20 MG TAB PO SCH (10:15)
[2022-01-31] MEDS ORDERED: Meloxicam 15 MG TAB PO SCH (10:15)
[2022-01-31 11:19] VITALS: BP 147/97
[2022-01-31 13:56] LABS: Troponin I 0.011 ng/mL (< 0.028)
[2022-01-31 16:07] LABS: SARS-CoV-2 PCR by NAA Not Detected (NotDetected)
[2022-01-31] MEDS ORDERED: Furosemide 40 MG TAB PO SCH (21:00)
[2022-01-31] MEDS ORDERED: Thiamine 100 MG TAB PO SCH (21:00)
[2022-02-01] MEDS ORDERED: Meloxicam 15 MG TAB PO SCH (09:00)
[2022-02-01] MEDS ORDERED: Ascorbic Acid 500 mg Chewable Tablet PO SCH (09:00)
[2022-02-01] MEDS ORDERED: Nortriptyline HCl 25 MG CAP PO SCH (09:00)
== END 2022-01-31 14:25 | disposition home or self-care (01) ==
LOC: ERS 06:05 → 2SW 07:32
PROVIDERS: ADMIT Family Medicine; ATTEND Family Medicine
DX: R10.13 Epigastric pain (principal); D53.9 Nutritional anemia, unspecified; I11.0 Hypertensive heart disease with heart failure; I50.20 Unspecified systolic (congestive) heart failure; F10.21 Alcohol dependence, in remission; Z87.891 Personal history of nicotine dependence; Z79.1 Long term (current) use of non-steroidal anti-inflammatories (NSAID); Z79.899 Other long term (current) drug therapy; Z88.6 Allergy status to analgesic agent; Z20.822 Contact with and (suspected) exposure to COVID-19
CPT/HCPCS: 36415; 71045; 80053; 83690; 84484; 85025; 93005; G0378; U0003; U0005